=== PATIENT | male | born 2000 | race Caucasian/White ===

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

== ENCOUNTER → 2018-10-19 | Outpatient (CLI) | payer OTHER | LOC: COL.VAS 12:51 | DX: R00.0 Tachycardia, unspecified (principal) ==

== ENCOUNTER 2023-11-14 19:38 | Emergency (ER) | payer OTHER ==
[~2023-11-14] VITALS: Ht 170.2 cm; Wt 88.6 kg
[2023-11-14 19:46] VITALS: TEMP 98.3
[2023-11-14] MEDS ORDERED: Mag/Al Hydrox/Simeth Susp 30 ML CUP PO ONE (21:30)
[2023-11-14 21:46] LABS: BASO # 0.1 K/mm3 (0.0-0.2); BASO % 0.7 % (0.0-2.0); EOS # 0.4 K/mm3 (0.0-0.7); EOS % 2.3 % (0.0-4.0); GRAN % 75.6 % (42.2-75.2); HEMATOCRIT 43.2 % (42.0-52.0); HEMOGLOBIN 14.7 g/dl (13.5-18.0); LYMPH # 1.9 K/mm3 (1.2-3.4); LYMPH % 11.9 % (20.0-51.0); MEAN CELL VOLUME 89 fl (80.0-100.0); MEAN CORPUSCULAR HEMOGLOBIN 30 pg (27-31); MEAN CORPUSCULAR HGB CONC 34 g/dl (33.0-37.0); MEAN PLATELET VOLUME 8.7 fl (7.4-10.4); MONO # 1.5 K/mm3 (0.1-0.6); MONO % 9.2 % (1.7-9.3); PLATELET COUNT 244 K/mm3 (130-400); RED BLOOD COUNT 4.84 M/mm3 (4.20-5.60); REDCELL DISTRIBUTION WIDTH-CV 12.8 % (11.5-14.5)
[2023-11-14 22:06] LABS: ALANINE AMINOTRANSFERASE 19 U/L (0-55); ALBUMIN 4.1 g/dL (3.5-5.0); ALKALINE PHOSPHATASE 102 U/L (40-150); ANION GAP 11 mmol/L (7-16); AST,SGOT 14 U/L (5-34); BILIRUBIN,TOTAL 0.8 mg/dL (0.2-1.2); BLOOD UREA NITROGEN 11 mg/dL (9-21); CALCIUM 9.3 mg/dL (8.4-10.2); CHLORIDE 106 mEq/L (98-107); GLUCOSE 95 mg/dL (70-99); POTASSIUM 4.1 mEq/L (3.5-4.5); SODIUM 137 mEq/L (136-145); TOTAL PROTEIN 7.3 g/dl (6.2-8.1)
[2023-11-14 22:14] LABS: TROPONIN-I < 0.010 ng/mL (0.00-0.033)
[2023-11-14 23:14] LABS: MAGNESIUM 1.9 mg/dL (1.6-2.6)
[2023-11-15] MEDS ORDERED: PRIL40 PO (01:26)
[2023-11-15 01:45] VITALS: BP 124/70; PULSE 74
== END 2023-11-15 01:45 | disposition home or self-care (01) ==
LOC: COL.ER 19:38
PROVIDERS: Internal Medicine
DX: K21.9 Gastro-esophageal reflux disease without esophagitis (principal)

== ENCOUNTER → 2024-01-27 | Outpatient (CLI) | payer OTHER ==
[~2024-01-27] MED LIST changes: +Gadoterate 20 ML VIAL IV ONE; +PRIL40 PO
== END ==
LOC: COL.RAD 06:54
DX: G31.9 Degenerative disease of nervous system, unspecified (principal); G11.9 Hereditary ataxia, unspecified
CPT/HCPCS: A9575